=== PATIENT | male | born 1995 | race African-American/Black ===

== ENCOUNTER 2017-06-16 09:38 | Emergency (ER) | payer OTHER, SELFPAY ==
[~2017-06-16 09:38] MED LIST: Ibuprofen 100 MG/5 ML UDCUP ONE
[2017-06-16] MEDS ORDERED: Mag-Al Plus 1200 MG/1200 MG/120 MG/30 ML UDCUP ONE (09:59)
[2017-06-16] MEDS ORDERED: Lidocaine Viscous Sol 2% 15 ml UD Cup ONE (09:59)
== END 2017-06-16 10:06 | disposition home or self-care (01) ==
LOC: BURERS 09:38
DX: K21.9 Gastro-esophageal reflux disease without esophagitis (principal); J45.909 Unspecified asthma, uncomplicated; F17.210 Nicotine dependence, cigarettes, uncomplicated
CPT/HCPCS: 99283

== ENCOUNTER 2018-06-02 18:34 | Emergency (ER) | payer SELFPAY ==
[2018-06-02] MEDS ORDERED: Ketorolac Tromethamine 30 MG/ML VIAL ONE (19:00)
[2018-06-02 19:17] LABS: Anion Gap 18 mmol/L (10-20); BUN (Urea Nitrogen) 9 mg/dL (8.9-20.6); Calc. Creatinine Clearance 0 mL/min (70-130); Calcium 10.3 mg/dL (7.8-10.44); Carbon Dioxide 23 mmol/L (22-29); Chloride 104 mmol/L (98-107); Estimated GFR-MDRD Greater than 90; Glucose 71 mg/dL (70-105); Potassium 3.5 mmol/L (3.5-5.1); Sodium 141 mmol/L (136-145)
== END 2018-06-02 19:46 | disposition home or self-care (01) ==
LOC: BURERS 18:34
DX: F41.9 Anxiety disorder, unspecified (principal); J45.909 Unspecified asthma, uncomplicated
CPT/HCPCS: 80048; 84443; 84484; 93005; 96365; J1885

== ENCOUNTER 2019-10-09 13:35 | Emergency (ER) | payer SELFPAY | END 2019-10-09 14:06 | disposition home or self-care (01) | LOC: BURERS 13:35 | DX: S16.1XXA Strain of muscle, fascia and tendon at neck level, initial encounter (principal); M54.5 Low back pain; F17.210 Nicotine dependence, cigarettes, uncomplicated; V40.5XXA Car driver injured in collision with pedestrian or animal in traffic accident, initial encounter | CPT/HCPCS: 99283 ==

== ENCOUNTER → 2019-12-29 | Emergency (ER) | payer OTHER, SELFPAY ==
[2019-12-30 14:45] LABS: SARS-CoV-2 MS2 Positive; SARS-CoV-2 N Gene Negative; SARS-CoV-2 S Gene Negative; SARS-CoV-2 by NAA Not Detected (NotDetected); SARS-CoV-2 orf1ab Negative
== END ==
LOC: BURERS 18:18
DX: Z20.828 Contact with and (suspected) exposure to other viral communicable diseases (principal); F17.210 Nicotine dependence, cigarettes, uncomplicated
CPT/HCPCS: 87635; 99283; U0003

== ENCOUNTER 2021-03-09 18:10 | Emergency (ER) | payer SELFPAY ==
[2021-03-09] MEDS ORDERED: Clindamycin 150 MG CAP ONE (18:33)
[2021-03-09] MEDS ORDERED: traMADol HCl 50 MG TAB ONE (18:33)
== END 2021-03-09 18:37 | disposition home or self-care (01) ==
LOC: BURERS 18:10
DX: L02.412 Cutaneous abscess of left axilla (principal); F17.210 Nicotine dependence, cigarettes, uncomplicated
CPT/HCPCS: 99283

== ENCOUNTER 2022-02-24 12:11 | Emergency (ER) | payer SELFPAY ==
[2022-02-24] MEDS ORDERED: Bacitracin 1 PK ONE (13:07)
[2022-02-24] MEDS ORDERED: Acetaminophen/Codeine 30-300mg Tablet ONE (13:30)
[2022-02-24] MEDS ORDERED: Ketorolac Tromethamine 30 MG/ML VIAL ONE (13:30)
== END 2022-02-24 13:53 | disposition home or self-care (01) ==
LOC: BURERS 12:11
DX: S62.336B Displaced fracture of neck of fifth metacarpal bone, right hand, initial encounter for open fracture (principal); S62.344A Nondisplaced fracture of base of fourth metacarpal bone, right hand, initial encounter for closed fracture; F17.210 Nicotine dependence, cigarettes, uncomplicated; W22.8XXA Striking against or struck by other objects, initial encounter
CPT/HCPCS: 96372; J1885

== ENCOUNTER 2022-02-28 13:20 | Emergency (ER) | payer SELFPAY ==
[2022-02-28] MEDS ORDERED: Bacitracin 1 PK ONE (13:30)
== END 2022-02-28 13:49 | disposition home or self-care (01) ==
LOC: BURERS 13:20
DX: S60.511A Abrasion of right hand, initial encounter (principal); F17.210 Nicotine dependence, cigarettes, uncomplicated; X58.XXXA Exposure to other specified factors, initial encounter
CPT/HCPCS: 99282